=== PATIENT | female | born 1955 | race Caucasian/White ===

== ENCOUNTER 2020-12-23 10:53 | Emergency (ER) | payer MEDICARE ==
[2020-12-23 12:01] LABS: HEMOGLOBIN 13.2 gm/dl (12.3-15.3); RED BLOOD COUNT 4.3 M/UL (4.00-5.10); WHITE BLOOD COUNT 12.4 K/UL (4.5-11.0)
[2020-12-23] MEDS ORDERED: CEFUROXIME500 MG PO (14:01)
[2020-12-23] MEDS ORDERED: HYDROCODON-ACE1 EAC4 PO (14:10)
== END 2020-12-23 14:40 | disposition home or self-care (01) ==
LOC: ER1 10:53
PROVIDERS: Physician Assistant
DX: N13.6 Pyonephrosis (principal); I10 Essential (primary) hypertension; Z90.49 Acquired absence of other specified parts of digestive tract; Z88.0 Allergy status to penicillin; Z87.442 Personal history of urinary calculi; Z88.1 Allergy status to other antibiotic agents; Z88.5 Allergy status to narcotic agent
CPT/HCPCS: 80053; 81001; 85025; 87086; 96365; 96375; 99284; J0696; J1885